=== PATIENT | female | born 2000 | race African-American/Black ===

== ENCOUNTER 2021-08-28 15:49 | Emergency (ER) | payer SELFPAY ==
[2021-08-28 16:44] VITALS: BP 122/74; PULSE 81; RESP 16; TEMP 37.4; O2SAT 100
--- NOTE | 2021-08-28 17:29 | ED.GENADULT ---
HPI - General Adult General Chief complaint: Eye Problems Stated complaint: Eye scratched and blurry. Right eye History of Present Illness HPI narrative: Patient presents for evaluation of right eye irritation. She indicates she accidentally scratched her eye 4 days ago. She now reports some redness that seems to be getting larger. She also has some blurred vision. She has some photophobia. Denies other visual disturbance. She has worn contacts in the past but has not done so since the time of the event. She has been wearing her glasses. No additional complaints or concerns. Related Data Home Medications Medication Instructions Recorded Confirmed Iron Pill 08/28/21 Allergies Allergy/AdvReac Type Severity Reaction Status Date / Time No Known Allergies Allergy Unverified 08/28/21 16:53 Review of Systems Review of Systems: CONSTITUTIONAL: Denies fever, chills, or sweats. EYES: Reports redness, irritation and blurred vision on the right ENT: Denies rhinorrhea, congestion, sore throat, or otalgia. CARDIOVASCULAR: Denies chest pain, palpitations, or edema. RESPIRATORY: Denies cough or dyspnea. GASTROINTESTINAL: Denies abdominal pain, nausea, vomiting, or diarrhea. GENITOURINARY: Denies dysuria or hematuria. SKIN: Denies rash or itching. MUSCULOSKELETAL: Denies back pain, joint pain, or myalgia. NEUROLOGIC: Denies headache, numbness, dizziness, or weakness. PSYCHIATRIC: Denies anxiety or depression. PMFSH Past Medical History Medical History No pertinent past medical history Surgical History Surgical History H/O removal of cyst Family History Family History Mother No pertinent past medical history Social History Social History Smoking status: Never smoker Substance use: never Gender identity (if verbalized by the patient): Female Spiritual care concerns: No Exam Narrative: GENERAL: Well-appearing, well-nourished, and in no acute distress. HEAD: Normocephalic, atraumatic. EYES: PERRLA and EOMI. there is a subconjunctival hemorrhage noted on the right medial to the iris between 3 and 5 o'clock position. I do not appreciate any dye uptake when evaluated with wood's lamp and fluorescein stain ENT: Nares clear, no rhinorrhea or epistaxis. Mucous membranes moist. Oropharynx without tonsillar hypertrophy exudate or other lesions. Bilateral TMs pearly haywood nonbulging NECK: Supple. No adenopathy or masses. No carotid bruits or JVD CHEST: Clear to auscultation. No respiratory distress. No wheezes rales or rhonchi HEART: Regular rate and rhythm. No murmur heard. Normal peripheral pulses. ABDOMEN: Soft, nontender, nondistended, normal active bowel sounds. EXTREMITIES: Normal range of motion. No edema. SKIN: Warm, dry, no rash. NEURO: No focal deficits. Alert and oriented x3. PSYCH: Normal mood and affect. Course Course Emergency Course: This is a 20-year-old female who presents for evaluation of a scratch wound to right eye. She is a contact lens wearer but has not worn since the time of the event. I do not appreciate a corneal abrasion, but will cover her abx given reported history consistent with abrasion. Given her follow up information. She should follow up outpatient for further evaluation and treatment and return for worsening symptoms. Pt in agreement with plan of care. Level of Care: Express Care Visit Vital Signs Vital signs: Vital Signs Temperature 37.4 C 08/28/21 16:44 Pulse Rate 81 08/28/21 16:44 Respiratory Rate 16 08/28/21 16:44 Blood Pressure 122/74 08/28/21 16:44 Pulse Oximetry 100 08/28/21 16:44 Oxygen Delivery Room Air 08/28/21 16:44 Temperature 37.4 C 08/28/21 16:44 Pulse Rate 81 08/28/21 16:44 Respiratory
== END 2021-08-28 17:51 | disposition home or self-care (01) ==
PROVIDERS: Emergency Provider Nurse Practitioner; PCP Nurse Practitioner Family
DX: H11.31 Conjunctival hemorrhage, right eye (principal)
CPT/HCPCS: 99213; A9270; G0463